=== PATIENT | male | born 1985 | race Asian ===

== ENCOUNTER → 2016-10-27 | Outpatient (CLI) | payer OTHER ==
[2016-10-27 10:49] LABS: CALCIUM 9.2 mg/dL (8.5-10.1); CREATININE 0.9 mg/dL (0.7-1.3); GFR 99.8; POTASSIUM 4.1 mmol/L (3.5-5.1)
== END | disposition home or self-care (01) ==
LOC: LAB 09:55
PROVIDERS: ATTEND Nurse Practitioner Occupational Health
DX: Z12.5 Encounter for screening for malignant neoplasm of prostate (principal); N41.9 Inflammatory disease of prostate, unspecified
CPT/HCPCS: 36415; 80048; G0103